=== PATIENT | male | born 2000 | race Caucasian/White ===

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

== ENCOUNTER → 2021-03-31 | Outpatient (REF) | payer OTHER ==
[~2021-03-31] MED LIST changes: -EMLA CREAM 5GM (LIDOCAINE/PRILOCAINE) TOP ONE; -LIDOCAINE 1% MDV 20ML VIAL SQ PRN; -LR 1,000 ML IV ONE; -ceFAZolin SOD 2 GM in IV 1 EA IV ONE
[2021-03-31 18:34] LABS: ALBUMIN 4.5 GM/DL (3.2-5.2); ALT/SGPT 34 U/L (12-78); BILIRUBIN,TOTAL 0.7 MG/DL (0.2-1.0); BLOOD UREA NITROGEN 13 MG/DL (7-18); CALCIUM LEVEL 9.3 MG/DL (8.5-10.1); CARBON DIOXIDE LEVEL 30 MEQ/L (21-32); CHLORIDE LEVEL 105 MEQ/L (98-107); CREATININE FOR GFR 0.82 MG/DL (0.70-1.30); GLUCOSE, FASTING 73 MG/DL (70-100); POTASSIUM SERUM 4.4 MEQ/L (3.5-5.1); SODIUM LEVEL 139 MEQ/L (136-145); TOTAL PROTEIN 8.1 GM/DL (6.4-8.2)
[2021-04-01 08:07] LABS: H PYLORI QUALITATIVE IgG NEGATIVE (NEGATIVE)
== END ==
LOC: M SFHCADAM 15:10
PROVIDERS: ATTEND Physician Assistant
DX: R11.14 Bilious vomiting (principal); R19.7 Diarrhea, unspecified

== ENCOUNTER 2021-06-16 23:34 | Emergency (ER) | payer OTHER ==
[~2021-06-16] VITALS: Ht 180.3 cm; Wt 88.6 kg
[2021-06-17] MEDS ORDERED: ONDANSETRON 4 MG ORAL DISINTEGRATING TAB PO ONE (03:45)
[2021-06-17] MEDS ORDERED: ONDA4TAB6 PO (03:46)
[2021-06-17 04:12] VITALS: BP 121/61
== END 2021-06-17 04:18 | disposition home or self-care (01) ==
LOC: M ED 23:34
DX: K52.9 Noninfective gastroenteritis and colitis, unspecified (principal); F17.200 Nicotine dependence, unspecified, uncomplicated
CPT/HCPCS: 99283; Q0162

== ENCOUNTER 2022-08-19 22:11 | Emergency (ER) | payer OTHER ==
[~2022-08-19] VITALS: Ht 177.8 cm; Wt 91.7 kg
[~2022-08-19 22:11] MED LIST changes: +ONDA4TAB6 PO
[2022-08-20 00:32] LABS: CK-MB VALUE MASS < 1.0 NG/ML (<3.6)
[2022-08-20 00:33] LABS: BLOOD UREA NITROGEN 12 MG/DL (9-23); CALCIUM LEVEL 8.7 MG/DL (8.5-10.1); CARBON DIOXIDE LEVEL 30 MMOL/L (20-31); CHLORIDE LEVEL 102 MMOL/L (98-107); CPK CREATINE PHOSPHOKINASE 146 U/L (46-171); CREATININE FOR GFR 0.76 MG/DL (0.70-1.30); GLOMERULAR FILTRATION RATE > 60.0 (>60); GLUCOSE, FASTING 108 MG/DL (60-100); MB/CK RELATIVE INDEX 0.68 (< OR =4); SODIUM LEVEL 138 MMOL/L (136-145)
[2022-08-20 00:55] LABS: BASO % 0.4 % (0.0-1.0); EOS # 0.3 10^3/uL (0.0-0.5); EOS % 2.8 % (0.0-3.0); HEMATOCRIT 42.7 % (42.0-52.0); HEMOGLOBIN 14.4 g/dl (13.5-17.5); LYMPH # 2.2 10^3/uL (1.5-5.0); LYMPH % 24.2 % (24.0-44.0); MEAN CORPUSCULAR HEMOGLOBIN 30.4 pg (27.0-33.0); MEAN CORPUSCULAR HGB CONC 33.7 g/dl (32.0-36.5); MEAN CORPUSCULAR VOLUME 90.1 fl (80.0-96.0); MONO # 0.8 10^3/uL (0.0-0.8); MONO % 8.5 % (2.0-8.0); NEUTROPHILS # 5.9 10^3/uL (1.5-8.5); NEUTROPHILS % 63.8 % (36.0-66.0); PLATELET COUNT, AUTOMATED 223 10^3/uL (150-450); RED BLOOD COUNT 4.74 10^6/uL (4.30-6.10); WHITE BLOOD COUNT 9.3 10^3/uL (4.0-10.0)
[2022-08-20] MEDS ORDERED: ISOVUE-370 76% 100ML VIAL As Ordered ONE (01:38)
[2022-08-20 03:08] VITALS: BP 127/71
[2022-08-20 03:14] LABS: CK-MB VALUE MASS < 1.0 NG/ML (<3.6)
[2022-08-20 03:16] LABS: CPK CREATINE PHOSPHOKINASE 117 U/L (46-171); MB/CK RELATIVE INDEX 0.85 (< OR =4)
[2022-08-20] MEDS ORDERED: HOLTER MONITOR XX (03:34)
== END 2022-08-20 03:51 | disposition home or self-care (01) ==
LOC: M ED 22:11
DX: R55 Syncope and collapse (principal); R39.198 Other difficulties with micturition; I48.0 Paroxysmal atrial fibrillation; R00.1 Bradycardia, unspecified; F17.200 Nicotine dependence, unspecified, uncomplicated; Z88.0 Allergy status to penicillin

== ENCOUNTER → 2022-08-25 | Outpatient (CLI) | payer OTHER ==
[~2022-08-25] MED LIST changes: +HOLTER MONITOR XX
== END ==
LOC: M EKG 11:28
PROVIDERS: ATTEND Emergency Medicine
DX: Z53.9 Procedure and treatment not carried out, unspecified reason (principal)